=== PATIENT | male | born 2000 | race Caucasian/White ===

== ENCOUNTER 2019-08-20 17:16 | Emergency (ER) | payer SELFPAY ==
[~2019-08-20] VITALS: Ht 180.3 cm; Wt 81.4 kg
[2019-08-20 17:32] VITALS: Ht 180.3 cm; Wt 81.4 kg
[2019-08-20] MEDS ORDERED: BACLOFEN20 M1 PO (18:51)
[2019-08-20] MEDS ORDERED: VOLTAREN75 MG PO (18:51)
[2019-08-20 19:00] VITALS: BP 128/79
== END 2019-08-20 19:00 | disposition home or self-care (01) ==
LOC: D.ER 17:16
DX: M54.5 Low back pain (principal); X50.0XXA Overexertion from strenuous movement or load, initial encounter; M62.838 Other muscle spasm